=== PATIENT | male | born 1970 | race Caucasian/White ===

== ENCOUNTER 2020-02-14 09:52 | Outpatient (CLI) | payer BC, OTHER ==
[2020-02-14 14:12] LABS: #Basophils 0.1 thou/uL (0.0-0.2); #Eosinphils 0.1 thou/uL (0.0-0.7); #Lymphocytes 1.9 thou/uL (1.20-3.40); #Monocytes 0.4 thou/uL (0.11-0.59); %Basophils 1.4 % (0.0-1.0); %Eosinophils 2.3 % (0.0-10.0); %Lymphocytes 34.6 % (21.0-51.0); %Monocytes 7.6 % (0.0-10.0); %Neutrophils 54.1 % (42.0-75.0); Hemoglobin 18.1 g/dL (14.0-18.0); Mean Corpuscular HGB CONC 33.8 g/dL (32.0-36.0); Mean Corpuscular Hemoglobin 30.1 pg (27.0-31.0); Mean Corpuscular Volume 89.2 fL (78.0-98.0); Mean Platelet Volume 8.1 fL (7.4-10.4); Platelet Count 261 thou/uL (130-400); Red Blood Cell (RBC) Count 6.01 mill/uL (4.70-6.10); White Blood Cell (WBC) Count 5.5 thou/uL (4.8-10.8)
[2020-02-14 14:54] LABS: Anion Gap 13 mmol/L (10-20); BUN (Urea Nitrogen) 11 mg/dL (8.9-20.6); Calc. Creatinine Clearance 0 mL/min (70-130); Calcium 8.9 mg/dL (7.8-10.44); Carbon Dioxide 24 mmol/L (22-29); Chloride 101 mmol/L (98-107); Estimated GFR-MDRD 73; Glucose 86 mg/dL (70-105); Potassium 4.3 mmol/L (3.5-5.1); Sodium 134 mmol/L (136-145)
== END 2020-02-14 09:53 | disposition home or self-care (01) ==
LOC: LABBT 09:52
PROVIDERS: ATTEND Surgery
DX: Z01.812 Encounter for preprocedural laboratory examination (principal); K43.9 Ventral hernia without obstruction or gangrene
CPT/HCPCS: 80048; 85025

== ENCOUNTER 2020-02-16 07:51 | Day surgery (SDC) | payer BC ==
[2020-02-14 10:42] VITALS: BMI 43.0
[2020-02-16] MEDS ORDERED: Bupivacaine/Epinephrine 0.25% 30 ML VIAL ONE (08:56)
[2020-02-16] MEDS ORDERED: Fentanyl 100 MCG/2 ML VIAL ONE ×3 (09:27→11:06)
[2020-02-16] MEDS ORDERED: Metoclopramide HCl 10 MG/2 ML VIAL ONE (09:29)
[2020-02-16] MEDS ORDERED: Rocuronium Bromide 10 MG/ML (10ML VIAL) ONE (09:29)
[2020-02-16] MEDS ORDERED: Ketorolac Tromethamine 30 MG/ML VIAL ONE (09:29)
[2020-02-16] MEDS ORDERED: Ondansetron PF 4 MG/2 ML Vial ONE (09:29)
[2020-02-16] MEDS ORDERED: Glycopyrrolate 0.2 MG/ML 5 ML SYRINGE ONE (09:29)
[2020-02-16] MEDS ORDERED: Labetalol HCl 100 MG/20 ML VIAL ONE (09:29)
[2020-02-16] MEDS ORDERED: PROPOFOL 200 MG/20 ML VIAL ONE (09:29)
[2020-02-16] MEDS ORDERED: Lidocaine 1% PF 5 ML VIAL ONE (09:29)
[2020-02-16] MEDS ORDERED: HYDROmorphone 2 MG/ML VIAL ONE (10:31)
[2020-02-16] MEDS ORDERED: SUGAMMADEX SODIUM 200 MG/2 ML VIAL ONE (10:51)
--- NOTE | 2020-02-16 12:16 | OP ---
DATE OF PROCEDURE: 02/16/2020 PREOPERATIVE DIAGNOSIS: Ventral hernia x2. POSTOPERATIVE DIAGNOSIS: Ventral hernia x2. PROCEDURE PERFORMED: Da Vivienne laparoscopic ventral hernia repair with mesh, [address] ANESTHESIA: General. ESTIMATED BLOOD LOSS: Minimal. COMPLICATIONS: None. SPECIMENS: None. FINDINGS: Umbilical and ventral hernia. DESCRIPTION OF PROCEDURE: The patient was taken to the operating room and laid supine on the operating room table. After general anesthetic was obtained, a Santana was placed. The abdomen was shaved, prepped, and draped in a sterile fashion. Left subcostal 5-mm Optiview trocar was placed in the usual fashion without injury and high-flow pneumoperitoneum was obtained. Left and right abdominal 8-mm robot trocars were placed. All ports were docked to the robot. The 5-mm subcostal had been switched out to an 11 balloon trocar. There was a hernia at the umbilicus with some omental adhesions. This was all taken down as it was the posterior peritoneum, exposing the posterior mesh all the way around, dissecting up, revealed a 2nd hernia in the more ventral abdomen above the umbilicus. Again, all the preperitoneal fat was bluntly dissected out of the hernia and the posterior fascia cleaned off the peritoneum and preperitoneal fat. 0 V-Loc was brought into the abdominal cavity and used to close both defects in a running fashion. The 8-cm Ventralex ST mesh was brought into the sterile field. The exposed mesh was placed up against the posterior fascia to cover both closed defects. The nonadherent area was left down and exposed to the abdominal viscera. A 2-0 V-Loc was used to sew the mesh to the posterior fascia circumferentially. Both needles were removed from the abdomen and accounted for. All port sites were infiltrated using local anesthetic. All ports were removed under camera visualization. Pneumoperitoneum was let down. A 4-0 Monocryl and Dermabond were used to close all skin incisions. The patient was sent to Recovery in stable condition. All instrument counts, needle counts, and lap counts were correct. Job ID: [id number]
[2020-02-16] MEDS ORDERED: HYDROcodone/Acetaminophen 5/325 mg Tablet ONE (12:22)
== END 2020-02-16 13:14 | disposition home or self-care (01) ==
LOC: SDC 07:51
PROVIDERS: ATTEND Surgery
PROC: 0WUF4JZ Supplement Abdominal Wall with Synthetic Substitute, Percutaneous Endoscopic Approach (ICD-10-PCS; principal; 2020-02-16)
DX: K43.9 Ventral hernia without obstruction or gangrene (principal); K42.9 Umbilical hernia without obstruction or gangrene; E66.01 Morbid (severe) obesity due to excess calories; Z68.41 Body mass index [BMI] 40.0-44.9, adult
CPT/HCPCS: C1781; J0690; J1170; J1885; J2405; J2704; J2765; J3010